=== PATIENT | male | born 1945 | race Caucasian/White ===

== ENCOUNTER 2025-01-20 21:15 | Emergency (ER) | payer MEDICARE, OTHER, SELFPAY ==
--- NOTE | ~2025-01-20 | CT_ITS ---
CLINICAL HISTORY: fall, +HS, R parietal lac CT head without contrast COMPARISON: None FINDINGS: Right parietal laceration with skin deyvi noted. Global cerebral volume loss and chronic microvascular ischemic changes. No acute intracranial hemorrhage, extra-axial fluid collection, mass effect, or midline shift. Ventricular system and basilar cisterns are patent. Mercedes-white matter differentiation is maintained. No gross orbital abnormality. No suspicious or acute bone lesion. Mastoid air cells and paranasal sinuses are predominantly clear. IMPRESSION: 1. No acute intracranial abnormality. 2. Global cerebral volume loss and chronic microvascular ischemic changes. This document has been electronically signed by: Arsen Peter MD on 01/20/2025 22:48:34
--- NOTE | ~2025-01-20 | CT_ITS ---
CLINICAL HISTORY: fall, +HS CT cervical spine without contrast Comparison: None Findings: Cervical vertebral body heights maintained. No traumatic listhesis, subluxation, or dislocation demonstrated. Diffuse moderate degenerative changes with associated straightening and reversal of the usual cervical lordosis. No acute fracture identified. Intervertebral disc spaces are congruent. No acute prevertebral or paraspinous soft tissue finding. Visualized portions of the lung apices are clear. IMPRESSION: 1. No CT evidence of acute traumatic cervical spine injury. This document has been electronically signed by: Arsen Peter MD on 01/20/2025 22:50:50
[2025-01-20 21:24] VITALS: BP 129/63; PULSE 72; O2SAT 98
[2025-01-20 21:27] VITALS: BP 137/57; PULSE 71; RESP 16; TEMP 36.8; O2SAT 99; BMI 24.8
--- NOTE | 2025-01-20 21:49 | ECG_ITS ---
Test Reason : FALL Blood Pressure : */* mmHG Vent. Rate : 72 BPM Atrial Rate : 72 BPM P-R Int : 182 ms QRS Dur : 118 ms QT Int : 412 ms P-R-T Axes : 64 -19 37 degrees QTcB Int : 451 ms Normal sinus rhythm Right bundle branch block Abnormal ECG No previous ECGs available Referred By: Anna Burrell Electronically Signed By: LOY CLAUDIO MD
--- NOTE | 2025-01-20 21:49 | ED_ITS ---
HPI - Head Injury General Chief complaint: Fall Stated complaint: fall, head laceration Time Seen by Provider: 01/20/25 21:32 Source: patient and EMS Mode of arrival: EMS Limitations: no limitations History of Present Illness ED Provider: summer lizarraga np HPI Narrative: Patient is an 79-year-old male who presents emergency department via EMS for evaluation. Initial nursing triage reports a mechanical fall due to a rug under the desk. When I have spoken with the patient he states ?it was a balance issue?. Reports that he was standing up from a rolling chair at his computer desk, he felt off balance which he states is not atypical for him has gone on for many years but she does not typically fall due to this. Unfortunately he did fall today striking the right side of his head into a bookcase. No loss of consciousness. He has a laceration to the right side of his head, denies use of anticoagulants or known coagulation disorders. He denies any headache, dizziness or lightheadedness at this time. He states that the ?balance issues? typically occur during position change. Denies any numbness or tingling of the extremities, no associated bladder bowel dysfunction, chest pain, shortness of breath, difficulty breathing. Related Data Allergies Allergy/AdvReac Type Severity Reaction Status Date / Time cephalexin [From Keflex] Allergy Rash Verified 01/20/25 21:28 Review of Systems 2 Review of Systems: Yes all other systems are reviewed and are negative PMFSH Past Medical History Attestation statement: The following information was validated with the patient. Source: old records reviewed Social History Social History Smoked in Last 30 Days: No Use of substances other than those prescribed or required for medical reasons: No Advance Directives: No Advance Directives Information Provided: No Physical Exam 2 Vital Signs: Vital Signs: Last Vital Signs Temp 98.2 F 01/20/25 21:27 Pulse 79 01/20/25 23:30 Resp 16 01/20/25 21:27 BP 156/83 H 01/20/25 23:30 Pulse Ox 99 01/20/25 21:27 O2 Del Method Room Air 01/20/25 21:27 BMI result Body Mass Index 24.8 Appearance: Alert.?Oriented to person, place and time. No acute distress.?Normal affect. Head: Normocephalic. Right temporoparietal scalp with 2 cm superficial Y- shaped laceration, no active bleeding Eyes: Pupils equal, round and reactive to light. EOMI. Conjunctiva and sclera normal? No Carreno sign noted. No raccoon eyes noted ENT: No septal hematoma, nares patent bilaterally. External auditory canal normal tympanic membrane pearly mercedes and intact bilaterally. Dentition normal, no fractured teeth. No lesions or lacerations of oropharynx. Uvula midline. Moist mucous membranes. Neck: Normal inspection.? Neck supple.??No palpable tenderness, step-off, deformities. CVS: Heart sounds normal. Normal heart rate and rhythm.? Pulses normal.?? Respiratory: No respiratory distress.? Lung sounds clear to auscultation bilaterally?? Abdomen: Soft and non-tender. Normoactive bowel sounds. ?? Skin: Skin warm and dry.? Normal skin color.? Extremities: No lower extremity edema.? Neuro: No focal neurological deficit observed, CN II-XII intact, normal sensory observed, normal coordination observed. Level of consciousness: Appropriate for age. Motor strength:right upper extremity 5 /5, left upper extremity 5 /5, right lower extremity 5 /5, left lower extremity 5 /5.? Speech: Normal, Gait: Normal, Kwmbne-bu-vfbr test: Normal, Laog-jr-qfnz test: Normal. Course Reevaluation(s) Reevaluation #1: CT head and cervical spine without acute pathology. CBC is without leukocytosis, has a mild normocytic anemia that does not meet transfusion criteria, no thrombocytopenia. No significant electrolyte derangement. High sensitive troponin within normal range, ECG reveals normal sinus rhythm with RBBB, ventricular rate of 72, QTC 451, no ST-elevation. BNP within normal range. Orthostatic vital signs were negative. He is ambulatory with a steady gait. Requesting discharge home which is reasonable at this time. Discussed strict return precautions. All questions answered Medical Decision Making Medical Decision Making MDM Narrative: Patient is an 79-year-old male with past medical history insomnia, disorder presents emergency department for evaluation of head strike after a fall , at no point does he describe landing down on to the floor, but does state that he has a chronic balance issue, he typically is able to hold onto furniture to regain his balance and continue walking usually occurring during position change. Denies any workup with his primary care doctor for this. He had no associated LOC today. Denies use of anticoagulants. He does have a Fischer shaped laceration to the right temporoparietal region of the scalp as per be portion of this note, the area was able to be cleansed with saline, a single staple was placed to the more posterior aspect of the laceration as this was deeper than the remainder of the superficial laceration. Reports last tetanus vaccination is up-to-date within the past [address] of the head and cervical spine to exclude ICH, SDH, fracture, cervical spine fracture subluxation. In addition plan to obtain serum labs including ECG to exclude alternative pathology for his impaired balance, orthostatic vital signs to assess for hypotension. He has no focal neurological deficits at the time of my initial evaluation. Differential Diagnosis Differential Diagnoses: The differential diagnosis associated with the presentation includes (See narrative above) Admission/Observation Consideration of admission/observation: Escalation of care including admission/observation considered (See narrative above) Lab Data MDM Lab Attestation statement: I reviewed the patient's lab results. 01/20/25 22:01 01/20/25 22:01 Labs: Lab Results 01/20/25 Range/Units 22:01 WBC 6.0 (4.8-10.8) X10*3/uL RBC 3.19 L (4.60-5.80) X10*6/uL Hgb 10.1 L (14.0-18.0) g/dl Hct 29.4 L (42.0-52.0) % MCV 92.2 (80.0-98.0) fL MCH 31.7 (27.0-33.0) pg MCHC 34.4 (31.0-36.0) g/dl RDW 11.6 (11.0-16.0) % Plt Count 307 (160-400) X10*3/uL MPV 8.3 L (9.4-12.4) fL Immature Gran % (Auto) 0.3 (0.0-0.4) % Neut % (Auto) 73.2 H (45-73) % Lymph % (Auto) 11.9 L (20-40) % Band[place] % (Auto) 12.4 H (2-11) % Eos % (Auto) 1.7 (0-4) % Baso % (Auto) 0.5 (0-2) % Lymph # (Auto) 0.7 L (1.2-4.9) X10*3/uL [place] # (Auto) 0.7 (0.1-1.2) X10*3/uL Eos # (Auto) 0.1 (0.0-0.4) X10*3/uL Baso # (Auto) 0.0 (0.0-0.2) X10*3/uL Abs Immat Gran (auto) 0.02 (0.00-0.03) X10*3/uL Absolute Neuts (auto) 4.4 (2.0-8.3) x10*3/uL Absolute Nucleated RBC 0.000 (0.0-0.012) X10*3/uL Nucleated RBC % (auto) 0.0 (0.0-0.2) /100WBC Sodium 136 (135-145) mmol/L Potassium 4.2 (3.3-5.1) mmol/L Chloride 101 (96-108) mmol/L Carbon Dioxide 31 H (22-29) mmol/L Anion Gap 8 L (12-20) BUN 28 H (9-16) mg/dL Creatinine 1.21 (0.5-1.4) mg/dL Estim Creat Clear Calc 49.4 Estimated GFR 58 Random Glucose 115 (60-115) mg/dL Calcium 8.9 (8.4-10.2) mg/dL Magnesium 2.0 (1.6-2.6) mg/dL Total Bilirubin 0.2 (0.0-1.0) mg/dL AST 23 (5-37) U/L ALT 14 (0-40) U/L Alkaline Phosphatase 87 (39-117) U/L Troponin I High Sens 9.4 (<3.5-35.0) ng/L B-Natriuretic Peptide 78 (<100) pg/mL Total Protein 6.2 L (6.5-8.0) g/dL Albumin 3.7 (3.5-5.0) g/dL Radiology Impression Discussion of test interpretation with radiology: I have reviewed the radiologist's reading. Radiologist Impression: CT head without contrast COMPARISON: None FINDINGS: Right parietal laceration with skin deyvi noted. Global cerebral volume loss and chronic microvascular ischemic changes. No acute intracranial hemorrhage, extra-axial fluid collection, mass effect, or midline shift. Ventricular system and basilar cisterns are patent. Mercedes-white matter differentiation is maintained. No gross orbital abnormality. No suspicious or acute bone lesion. Mastoid air cells and paranasal sinuses are predominantly clear. IMPRESSION: 1. No acute intracranial abnormality. 2. Global cerebral volume loss and chronic microvascular ischemic changes. CT cervical spine without contrast Comparison: None Findings: Cervical vertebral body heights maintained. No traumatic listhesis, subluxation, or dislocation demonstrated. Diffuse moderate degenerative changes with associated straightening and reversal of the usual cervical lordosis. No acute fracture identified. Intervertebral disc spaces are congruent. No acute prevertebral or paraspinous soft tissue finding. Visualized portions of the lung apices are clear. IMPRESSION: 1. No CT evidence of acute traumatic cervical spine injury. Independent Historian Clinical information obtained from an independent historian. History obtained from or confirmed by: EMS External Record Review External record reviewed: Outpatient record Procedures Laceration Laceration 1: Site: scalp Side (If applicable): right Size (cm): 2 Description: irregular Depth: simple, single layer Pre-repair: wound explored Skin layer closed with: other (staple) Discharge Plan Discharge Clinical Impression: Head injury, acute, without loss of consciousness Qualifiers: Encounter type: initial encounter Qualified Code(s): S09.90XA - Unspecified injury of head, initial encounter Patient Disposition: Home, Self-Care Instructions: Head Injury (ED) Additional Instructions: You were seen in the emergency department for evaluation after a head injury. You had a laceration to the right side of your scalp which required 1 staple for closure. The staple will need to be removed in 7 days you may follow-up with your primary care doctor for removal or return back to emergency department for removal. Your blood work today was reassuring. CT scan of your head did not show evidence of bleeding into the brain which is very reassuring. Please return back to emergency department with a new worsening symptoms or concerns. Referrals: Physician,Unknown J [Primary Care Provider] - Print Language: Upper Sorbian
[2025-01-20 22:05] LABS: MANUAL DIFF FLAG NO
[2025-01-20 22:07] LABS: Basophils Percent Auto 0.5 % (0-2); Eosinophils Absolute Auto 0.1 X10*3/uL (0.0-0.4); Eosinophils Percent Auto 1.7 % (0-4); Hematocrit 29.4 % (42.0-52.0); Hemoglobin 10.1 g/dl (14.0-18.0); Imm Gran Abs Auto 0.02 X10*3/uL (0.00-0.03); Imm Gran Pct Auto 0.3 % (0.0-0.4); Lymphocytes Absolute Auto 0.7 X10*3/uL (1.2-4.9); Lymphocytes Percent Auto 11.9 % (20-40); Mean Corpuscular HGB Conc 34.4 g/dl (31.0-36.0); Mean Corpuscular Hemoglobin 31.7 pg (27.0-33.0); Mean Corpuscular Volume 92.2 fL (80.0-98.0); Mean Platelet Volume 8.3 fL (9.4-12.4); Monocytes Absolute Auto 0.7 X10*3/uL (0.1-1.2); Monocytes Percent Auto 12.4 % (2-11); Neutrophils Absolute Auto 4.4 x10*3/uL (2.0-8.3); Neutrophils Percent Auto 73.2 % (45-73); Platelet Count 307 X10*3/uL (160-400); Red Blood Count 3.19 X10*6/uL (4.60-5.80); Red Cell Distribution Width 11.6 % (11.0-16.0)
[2025-01-20 22:23] LABS: Alanine Aminotransferase 14 U/L (0-40); Albumin Level 3.7 g/dL (3.5-5.0); Alkaline Phosphatase 87 U/L (39-117); Anion Gap 8 (12-20); Aspartate Amino Transferase 23 U/L (5-37); Bilirubin Total 0.2 mg/dL (0.0-1.0); Blood Urea Nitrogen 28 mg/dL (9-16); Calcium 8.9 mg/dL (8.4-10.2); Carbon Dioxide 31 mmol/L (22-29); Chloride 101 mmol/L (96-108); Creatinine Clr Calc Pharmacy 49.4; Estimated Glomerular Filt Rate 58; Glucose Random 115 mg/dL (60-115); Potassium 4.2 mmol/L (3.3-5.1); Sodium 136 mmol/L (135-145); Total Protein 6.2 g/dL (6.5-8.0)
[2025-01-20 22:27] LABS: B Type Natriuretic Peptide 78 pg/mL (<100)
[2025-01-20 22:29] LABS: Troponin-I High Sensitivity 9.4 ng/L (<3.5-35.0)
[2025-01-20 23:28] VITALS: BP 150/71; BP 151/65; PULSE 71; PULSE 78
[2025-01-20 23:30] VITALS: BP 156/83; PULSE 79
--- NOTE | 2025-01-20 23:34 | PC.NURSE ---
Took over care from chandrika Hough completed and reported to Albert Petit
--- NOTE | 2025-01-21 01:36 | PC.NURSE ---
called facility spoke to [facility], reviewed discharge instruction with staff and pt.
[2025-01-21 01:37] VITALS: BP 150/82; PULSE 80; RESP 20; TEMP 36.7; O2SAT 98
[2025-01-21 01:39] VITALS: BP 150/82; PULSE 80; RESP 20; TEMP 36.7; O2SAT 98
== END 2025-01-21 01:39 | disposition home or self-care (01) ==
PROVIDERS: Nurse Practitioner Family; Emergency Provider Emergency Medicine
DX: S09.90XA Unspecified injury of head, initial encounter (principal); W01.190A Fall on same level from slipping, tripping and stumbling with subsequent striking against furniture, initial encounter; Y93.89 Activity, other specified; Y92.9 Unspecified place or not applicable; Y99.9 Unspecified external cause status
CPT/HCPCS: 12001; 36415; 70450; 72125; 80053; 83735; 83880; 84484; 85025; 93005; 99284

== ENCOUNTER → 2025-01-20 21:48 | Outpatient (BNV) | payer MEDICARE, OTHER, SELFPAY | PROVIDERS: Emergency Provider Emergency Medicine; Visit Provider Radiology Diagnostic Radiology | DX: M50.30 Other cervical disc degeneration, unspecified cervical region (principal); S01.81XA Laceration without foreign body of other part of head, initial encounter | CPT/HCPCS: 70450; 72125 ==

== ENCOUNTER → 2025-01-20 21:49 | Outpatient (BNV) | payer MEDICARE, OTHER, SELFPAY | PROVIDERS: Emergency Provider Emergency Medicine; Visit Provider Internal Medicine Cardiovascular Disease | DX: I45.10 Unspecified right bundle-branch block (principal) | CPT/HCPCS: 93010 ==